=== PATIENT | male | born 1970 | race African-American/Black ===

== ENCOUNTER 2022-06-07 08:17 | Emergency (ER) | payer SELFPAY ==
[~2022-06-07] VITALS: Ht 182.9 cm; Wt 82.0 kg
[2022-06-07 08:27] VITALS: BP 149/87; PULSE 62; TEMP 98
[2022-06-07 08:40] LABS: COLLECTION METHOD CLEAN CATCH
[2022-06-07 09:04] LABS: MUCOUS Present (NOT PRESENT); SQUAMOUS EPITHELIAL 0-2 /hpf (0-10); URINE APPEARANCE Clear (CLEAR/HAZY); URINE BACTERIA None Seen /hpf (NONE SEEN); URINE COLOR Yellow (YELLOW); URINE RBC 20-50 /hpf (0-2)
[2022-06-07 09:05] LABS: URINE BLOOD 2+ (NEGATIVE); URINE GLUCOSE TRACE (NEGATIVE); URINE KETONE Negative (NEGATIVE); URINE NITRATE Negative (NEGATIVE); URINE PROTEIN(semi-quant) 1+ (NEGATIVE); URINE UROBILINOGEN 0.2 E.U/dL (0.2-1.0)
[2022-06-07] MEDS ORDERED: BACTRIM DS 8001 TAB PO (09:18)
== END 2022-06-07 09:30 | disposition home or self-care (01) ==
LOC: COL.ER 08:17
PROVIDERS: Emergency Medicine
DX: N39.0 Urinary tract infection, site not specified (principal)